=== PATIENT | male | born 1985 | race Caucasian/White ===

== ENCOUNTER 2017-04-28 12:15 | Emergency (ER) | payer BC ==
[2017-04-28 13:21] VITALS: BP 149/83
--- NOTE | 2017-04-28 14:59 | ED ---
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 onset 5 days ago when waking up from sleeping. He denies trauma. He denies specific injury. He states he has no neck pain. Denies CP. Denies change in gait. Denies fever, chills. No change in voice or throat pain. - History of Current Complaint Chief Complaint: UCUpperExtremity Stated Complaint: BILATERAL SHOULDER/ARM/HAND PAIN Time Seen by Provider: 04/28/17 14:41 - Allergies/Home Medications Allergies/Adverse Reactions: Allergies Allergy/AdvReac Type Severity Reaction Status Date / Time No Known Allergies Allergy Verified 04/28/17 13:12 Home Medications: Home Medications NK [No Home Medications Reported] 04/28/17 [History Confirmed 04/28/17] PMH/Surg Hx/FS Hx/Imm Hx - Surgical History Surgery Procedure, Year, and Place: Appendix Infectious Disease History: No Infectious Disease History: Denies: Traveled Outside the [place] in Last 30 Days - Family History Known Family History: Positive: None - Social History Occupation: Employed Full-time Alcohol Use: Rare Substance Use Type: Reports: None Smoking Status (MU): Never Smoked Tobacco Type: Smokeless Tobacco Review of Systems Negative: Fever, Chills Negative: Sore Throat Negative: Shortness Of Breath Negative: incontinence Negative: Headache, Slurred Speech All Other Systems Reviewed And Are Negative: Yes Physical Exam Triage Information Reviewed: Yes Vital Signs On Initial Exam: Initial Vitals Temp Pulse BP Pulse Ox 97.5 F 80 149/83 99 04/28/17 13:12 04/28/17 13:12 04/28/17 13:12 04/28/17 13:12 Vital Signs Reviewed: Yes Appearance: Positive: Well-Appearing, No Pain Distress Skin: Positive: Warm, Skin Color Reflects Adequate Perfusion Head/Face: Positive: Normal Head/Face Inspection Eyes: Positive: EOMI ENT: Positive: Normal ENT inspection Neck: Positive: Nontender Respiratory/Lung Sounds: Positive: Clear to Auscultation, Breath Sounds Present Cardiovascular: Positive: RRR. 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 He reports tingling both hand, but sensory grossly intact., Alert, Oriented to Person Place , Time, CN Intact II-III, Normal Gait, Speech Normal Psychiatric: Positive: Normal AVPU Assessment: Alert - Taisha Coma Scale Best Eye Response: 4 - Spontaneous Best Motor Response: 6 - Obeys Commands Best Verbal Response: 5 - Oriented Coma Scale Total: 15 Diagnostics - Vital Signs Vital Signs Temp Pulse BP Pulse Ox 04/28/17 13:12 97.5 F 80 149/83 99 - Laboratory Lab Statement: Any lab studies that have been ordered have been reviewed, and results considered in the medical decision making process. Course/Dx - Course Course Of Treatment: 31 yr old male with radicular pain and numbness symptoms. I recommend he go to the ER now for further evaluation. He is informed that he requires futher work up today, and probably MRI. I cannot do this here. He is signing out AMA and refuses to go to the ER for further work up with the risk of paralysis, worsening of symptoms, and disability. - Diagnoses Provider Diagnoses: Radiculopathy affecting upper extremity, Hypertension Discharge - Discharge Plan Condition: Stable Disposition: AGAINST MEDICAL ADVICE Referrals: No Primary Care Phys,NOPCP [Primary Care Provider] -
== END 2017-04-28 14:51 | disposition left against medical advice (07) ==
LOC: UCCORT 12:15
DX: M54.12 Radiculopathy, cervical region (principal); I10 Essential (primary) hypertension; Z72.0 Tobacco use
CPT/HCPCS: 99212; G0463